=== PATIENT | female | born 1945 | race Asian ===

== ENCOUNTER 2016-06-16 16:35 | Inpatient (IN) | payer OTHER, BC ==
[2016-06-16 20:04] VITALS: BP 149/103
[2016-06-16 20:23] VITALS: BP 149/103
[2016-06-16 23:43] VITALS: BP 130/66
[2016-06-17 06:52] LABS: EOSINOPHIL (%) 0.2 % (0-5); HEMATOCRIT 38.9 % (36.0-46.0); IMMATURE GRANULOCYTE (%) 0.2 % (0.0-0.7); LYMPHOCYTE COUNT 1.5 K/uL (1.0-2.8); MCHC 33.9 G/DL (30.0-36.0); MCV 85.5 FL (83-99); MEAN PLAT.VOLUME 11.5 uM^3 (9.5-12.4); MONOCYTE (%) 10.7 % (3-12); MONOCYTE COUNT 1.1 K/uL (0-0.8); NEUTROPHIL (%) 74.1 % (45-76); NEUTROPHIL COUNT 7.5 K/uL (1.8-6.4); PLATELET COUNT 215 K/uL (156-360); RBC DIS.WIDTH-CV 13.7 % (11.8-14.6); RBC DIS.WIDTH-SD 42.5 % (39-53); RED BLOOD COUNT 4.55 M/uL (3.80-5.20); WHITE BLOOD COUNT 10.1 K/uL (4.1-10.2)
[2016-06-17 07:19] LABS: ALKALINE PHOSPHATASE 19 IU/L (3-129); ANION GAP 11 MEQ/L (2-14); CHLORIDE 96 MEQ/L (99-109); GFR ESTIMATE (CALCULATED) > 59 mL/min/; GLUCOSE 104 mg/dL (70-99); POTASSIUM 3.4 MEQ/L (3.7-5.4); SAMPLE HEMOLYSIS CHECK 0; SAMPLE ICTERIC CHECK 0; SAMPLE LIPEMIA CHECK 0; SODIUM 136 MEQ/L (136-147); TOTAL BILIRUBIN 1.5 MG/DL (0.0-1.0); UREA NITROGEN (BUN) 16 mg/dL (9-23)
[2016-06-17 08:25] VITALS: BP 126/65
[2016-06-17 09:12] LABS: ADD MIUA? YES; BILIRUBIN SMALL; BLOOD NEGATIVE; COLOR DK YELLOW ((YELLOW)); GLUCOSE (STRIP) NEGATIVE; KETONES 40; LEUKOCYTES TRACE; NITRITE NEGATIVE; PH, URINE 5.5 (5-8); PROTEIN (STRIP) NEGATIVE; SPECIFIC GRAVITY 1.021 (1.000-1.030)
[2016-06-17 10:19] LABS: BACTERIA NONE SEEN /HPF; CASTS NONE SEEN /LPF; CRYSTALS NONE SEEN; EPITHELIAL CELLS RARE /HPF; MUCUS NONE SEEN /LPF; RED BLOOD CELLS NONE SEEN /HPF (0-5); WHITE BLOOD CELLS 0-5 /HPF (0-5)
[2016-06-17 16:07] VITALS: BP 110/63
[2016-06-17 23:37] VITALS: BP 98/60
[2016-06-18 08:22] LABS: ANION GAP 19 MEQ/L (2-14); CHLORIDE 100 MEQ/L (99-109); GAMMA-GT 6 IU/L (4-73); GFR ESTIMATE (CALCULATED) > 59 mL/min/; GLUCOSE 71 mg/dL (70-99); LIPASE 28 U/L (1.0-51.0); POTASSIUM 3.8 MEQ/L (3.7-5.4); SAMPLE HEMOLYSIS CHECK 0; SAMPLE ICTERIC CHECK 0; SAMPLE LIPEMIA CHECK 0; SODIUM 138 MEQ/L (136-147); UREA NITROGEN (BUN) 19 mg/dL (9-23)
[2016-06-18 09:07] VITALS: BP 119/61
[2016-06-18 17:51] VITALS: BP 119/58
[2016-06-18 22:54] VITALS: BP 113/64
[2016-06-19 07:30] VITALS: BP 99/51
[2016-06-19 15:52] VITALS: BP 117/63
[2016-06-19 23:25] VITALS: BP 128/66
[2016-06-20 08:52] VITALS: BP 129/73
[2016-06-20] MEDS ORDERED: LISINOPRIL2.5 MG PO (10:51)
[2016-06-20] MEDS ORDERED: REGLAN10 MG PO (10:55)
== END 2016-06-20 12:07 | disposition home or self-care (01) | DRG 390 ==
LOC: 5EAST 16:35
PROVIDERS: Family Medicine
DX: K56.5 Intestinal adhesions [bands] with obstruction (postinfection) (principal); I10 Essential (primary) hypertension; K80.20 Calculus of gallbladder without cholecystitis without obstruction; E11.65 Type 2 diabetes mellitus with hyperglycemia; E87.6 Hypokalemia; E87.8 Other disorders of electrolyte and fluid balance, not elsewhere classified; M81.0 Age-related osteoporosis without current pathological fracture; Z90.710 Acquired absence of both cervix and uterus; Z60.2 Problems related to living alone
CPT/HCPCS: 36415; 71010; 74022; 80048; 80053; 80061; 81003; 82150; 82977; 83036; 83690; 85025; 87086; C9113; J2270; J2765; J3480